=== PATIENT | male | born 1950 | race Caucasian/White ===

== ENCOUNTER → 2024-08-02 12:26 | Outpatient (REF) | payer OTHER, SELFPAY | LOC: PAVMRI 12:26 | PROVIDERS: ATTENDING PHYSICIAN Orthopaedic Surgery; FAMILY PHYSICIAN Family Medicine | DX: M25.562 Pain in left knee (principal) | CPT/HCPCS: 73721 ==

== ENCOUNTER → 2024-09-22 10:22 | Outpatient (REF) | payer OTHER, SELFPAY | LOC: HWEVLT 10:22 | PROVIDERS: ATTENDING PHYSICIAN Radiology Diagnostic Radiology | DX: I83.892 Varicose veins of left lower extremity with other complications (principal) | CPT/HCPCS: 93971 ==